=== PATIENT | female | born 1950 | race Two or more races ===

== ENCOUNTER 2022-11-19 14:00 | Emergency (ER) | payer OTHER ==
[~2022-11-19] VITALS: Ht 160 cm; Wt 58.1 kg
[2022-11-19] MEDS ORDERED: LEVOTHYROXINE25 MCG PO (14:31)
[2022-11-19] MEDS ORDERED: MECLIZINE HCL25 M1 PO (17:36)
== END 2022-11-19 17:52 | disposition home or self-care (01) ==
LOC: ER 14:00
DX: R42 Dizziness and giddiness (principal); E03.9 Hypothyroidism, unspecified

== ENCOUNTER 2023-12-02 09:59 | Emergency (ER) | payer OTHER ==
[~2023-12-02] VITALS: Ht 160 cm; Wt 58.1 kg
[~2023-12-02 09:59] MED LIST: LEVOTHYROXINE25 MCG PO; MECLIZINE HCL25 M1 PO
[2023-12-02] MEDS ORDERED: SYNTHROID75 MCG PO (10:24)
[2023-12-02 11:37] LABS: HEMATOCRIT 43.3 % (36.0-45.00); HEMOGLOBIN 14.5 g/dL (12.0-15.00); MEAN CELL VOLUME 85.7 fL (80.00-100.00); MEAN CORPUSCULAR HEMOGLOBIN 28.6 pg (27.00-32.0); MEAN CORPUSCULAR HGB CONC 33.4 g/dl (32.0-36.0); PLATELET COUNT 289 K/uL (150-450); RED BLOOD COUNT 5.05 M/uL (4.00-6.00); RED CELL DISTRIBUTION WIDTH 14.4 % (11.5-14.5)
[2023-12-02] MEDS ORDERED: 0.9 % SODIUM CHLORIDE 1,000 ML IV SCH (12:00)
[2023-12-02 12:07] LABS: CALCIUM 9.3 mg/dL (8.5-10.1); CREATININE SERUM 1.12 mg/dL (0.55-1.02); GFR 47.95; POTASSIUM 3.85 mEq/L (3.5-5.1)
[2023-12-02 12:11] LABS: URINE APPEARANCE Clear; URINE BILIRRUBIN Negative (NEGATIVE); URINE BLOOD Negative; URINE COLOR Yellow; URINE LEUKOCYTE Negative; URINE NITRATE Negative; URINE PROTEIN Negative (NEGATIVE); URINE UROBILINOGEN 0.2 E.U./dl
[2023-12-02 12:13] LABS: URINE EPITHELIAL CELLS 6.4 uL (0.0-38.8); URINE RBC 4.8 uL (0.0-20.8); URINE WBC 4.7 uL (0.0-23.2)
[2023-12-02 12:17] LABS: URINE GLUCOSE 100 MG/DL (NEGATIVE)
[2023-12-02 12:28] LABS: T4 FREE 1.26 NG/ML (0.76-1.46); TSH 1.77 uIU/mL (0.358-3.74)
== END 2023-12-02 14:04 | disposition home or self-care (01) ==
LOC: ER 09:59
PROVIDERS: Emergency Medicine
DX: K52.89 Other specified noninfective gastroenteritis and colitis (principal); E03.9 Hypothyroidism, unspecified; R42 Dizziness and giddiness
CPT/HCPCS: 36415; 70450; 93005; 96365; 96366; 99284; J7030